=== PATIENT | male | born 1965 | race Caucasian/White ===

== ENCOUNTER 2021-08-28 15:50 | Emergency (ER) | payer MEDICARE, MEDICAID ==
[~2021-08-28] VITALS: Ht 167.6 cm; Wt 86.6 kg
[~2021-08-28 15:50] MED LIST: ASPI-482 PO; ASPI-886 PO; ASPI325T11 PO; LISI20TA18 PO; PANT40TA77 PO; RANI150T2 PO; SUCR1TAB35 PO
[2021-08-28 16:13] VITALS: BP 108/66
[2021-08-28] MEDS ORDERED: AMOX875T PO (16:29)
[2021-08-28] MEDS ORDERED: CYCL10TA2 PO (16:29)
[2021-08-28] MEDS ORDERED: DICL20GE TP (16:29)
--- NOTE | 2021-08-28 16:29 | PHYS DOC ---
Past Medical History Past Medical History: Hypertension Additional Past Medical Histor: multiple concussions Past Surgical History: Other Additional Past Surgical Histo: ANGIOGRAM Smoking Status: Never Smoker Alcohol Use: None Drug Use: None General Adult EDM: Chief Complaint: EARACHE/EAR PAIN HPI: HPI: Patient is a 55 year old male patient presented to the ED today complaining of 7 out of 10 throbbing left ear pain, symptoms began a week ago. Patient is also complaining of a sharp 7 out of 10 bilateral neck pain worse on range of motion, symptoms began a week ago. Patient denies any injuries. Denies any fever coughing or congestion. Denies any nuchal rigidity. He states he was seen at [facility] on Sunday last week for neck pain and was given a muscle relaxer injection which helped for a short time but symptoms returned. He states he is not able to see his PCP because the earliest appointment they have is in 2 months and he is also moving in [place] in 1 month. Review of Systems: Review of Systems: Constitutional: Denies fever or chills. [] Eyes: Denies change in visual acuity. [] HENT: Reports left ear pain. Denies nasal congestion or sore throat. [] Respiratory: Denies cough or shortness of breath. [] Cardiovascular: Denies chest pain or edema. [] GI: Denies abdominal pain, nausea, vomiting, bloody stools or diarrhea. [] : Denies dysuria. [] Musculoskeletal: Reports neck pain Integument: Denies rash. [] Neurologic: Denies headache, focal weakness or sensory changes. [] Psychiatric: Denies depression or anxiety. [] Heart Score: C/O Chest Pain: N/A Risk Factors: Risk Factors: DM, Current or recent (<one month) smoker, HTN, HLP, family history of CAD, obesity. Risk Scores: Score 0 - 3: 2.5% MACE over next 6 weeks - Discharge Home Score 4 - 6: 20.3% MACE over next 6 weeks - Admit for Clinical Observation Score 7 - 10: 72.7% MACE over next 6 weeks - Early Invasive Strategies Allergies: Allergies: Allergies Coded Allergies Type Severity Reaction Last Updated Verified No Known Drug Allergies 10/02/14 No Physical Exam: PE: Constitutional: Well developed, well nourished, no acute distress, non-toxic appearance. [] HENT: Normocephalic, atraumatic, bilateral external ears normal, oropharynx moist, no oral exudates, nose normal. [] Left TM is mildly injected. Eyes: PERRLA, EOMI, conjunctiva normal, no discharge. [] Neck: Normal range of motion, no tenderness, supple, no stridor. [] Cardiovascular:Heart rate regular rhythm, no murmur [] Lungs & Thorax: Bilateral breath sounds clear to auscultation [] Abdomen: Bowel sounds normal, soft, no tenderness, no masses, no pulsatile masses. [] Skin: Warm, dry, no erythema, no rash. [] Back: No tenderness, no CVA tenderness. [] Extremities: No tenderness, no cyanosis, no clubbing, ROM intact, no edema. [] Neurologic: Alert and oriented X 3, normal motor function, normal sensory function, no focal deficits noted. [] Psychologic: Affect normal, judgement normal, mood normal. [] EKG: EKG: [] Radiology/Procedures: Radiology/Procedures: [] Course & Med Decision Making: Course & Med Decision Making Pertinent Labs and Imaging studies reviewed. (See chart for details) This is a 55-year-old male patient presenting to the ED today with left otitis media and neck pain. No injuries to the neck. Neck pain is a muscle skeletal. Patient was discharged with amoxicillin for the ear infection. He was also discharged with cyclobenzaprine for his neck pain and Voltaren cream. Encouraged to follow-up with a PCP here or in [place]. He was also provided ENT Dragon Disclaimer: Dragon Disclaimer: This electronic medical record was generated, in whole or in part, using a voice recognition dictation system. Departure Departure Impression: Primary Impression: Neck pain, bilateral Additional Impression: Otitis media Qualified Codes: H65.192 - Other acute nonsuppurative otitis media, left ear Disposition: HOME / SELF CARE / HOMELESS Condition: STABLE Referrals: RASHAD MENJIVAR MD (PCP) follow up in 1 week GODWIN ABBASI MD follow up in 1-2 weeks Patient Instructions: Otitis Media, Adult, [id number] Additional Instructions: You were evaluated in the emergency room. We sent a prescription for pain medicine and antibiotics to your pharmacy. We still encourage you to follow-up with your primary care doctor locally or in [place]. We also provided you an ENT specialist follow-up as needed. Consider using a heating pad to your neck. Scripts Cyclobenzaprine Hcl (CYCLOBENZAPRINE HCL) 10 Mg Tablet 1 TAB PO TID, #90 TAB Prov: ANKIT DWYER APRN 08/28/21 Diclofenac Sodium (Voltaren Arthritis Pain) 20 Gm Gel..gram. 1 REECE TP Q8HRS PRN for PAIN, #20 GM Prov: ANKIT DWYER APRN 08/28/21 Amoxicillin (AMOXICILLIN) 875 Mg Tablet 1 TAB PO BID, #20 TAB Prov: ANKIT DWYER APRN 08/28/21 ANKIT DWYER APRN Aug 28, 2021 16:29
== END 2021-08-28 16:35 | disposition home or self-care (01) ==
LOC: ER 15:50
DX: H65.192 Other acute nonsuppurative otitis media, left ear (principal); M54.2 Cervicalgia; I10 Essential (primary) hypertension
CPT/HCPCS: 99284